=== PATIENT | male | born 1985 | race Caucasian/White ===

== ENCOUNTER 2021-06-22 09:51 | Emergency (ER) | payer OTHER, SELFPAY ==
[2021-06-22 09:59] VITALS: BP 106/69; PULSE 71; RESP 16; TEMP 35.9; O2SAT 96; BMI 34.0
[2021-06-22 10:25] LABS: Appearance Urine HAZY; Color Urine AMBER; Glucose Urine UA NEG (NEG); Leukocyte Esterase Urine NEG (NEG); Nitrite Urine NEG (NEG); PH 6.5 (5.0-8.0); UACC Culture Trigger NO; Urine Blood NEG (NEG); Urine Ketones 5 MG/DL (NEG); Urine Protein 1+ MG/DL (NEG-TRACE)
[2021-06-22 10:36] LABS: Amphetamine Screen Urine POSITIVE (Not Detect); Barbiturates, Urine POSITIVE (Not Detect); Benzodiazepines Screen Urine POSITIVE (Not Detect); Cannabinoid Screen Urine Not Detected (Not Detect); Cocaine Screen Urine Not Detected (Not Detect); Fentanyl, urine Not Detected (Not Detect); Opiate Screen Urine Not Detected (Not Detect); Phencyclidine Screen Urine Not Detected (Not Detect); RBC Urine 0-2 /HPF (0); WBC Urine 0 /HPF (0-4)
--- NOTE | 2021-06-22 11:14 | ED.MEDCLEAR ---
HPI - Medical Clearance General Chief complaint: Medical Clearance Stated complaint: med clearance Time Seen by Provider: 06/22/21 10:54 Source: patient Mode of arrival: ambulatory Limitations: no limitations History of Present Illness HPI Narrative: 36-year-old male presenting to the ED requesting for medical clearance to go to the program at [facility] today. He reports that he last used alcohol 3 weeks ago. Denies any recent alcohol usage or any drug usage at all. Denies any SI/HI/auditory visual sensations thoughts of self-injury. He reports he was recently hospitalized approximately 3 weeks ago for jaundice and is taking all his medication as prescribed and does not believe he needs any labs done. MD complaint: medical clearance requested Reason for Medical Clearance: other (Program at the [facility]) Alleged Intoxication: No Compliant with Home Medications: Yes Traumatic Symptoms: denies traumatic injury Associated Symptoms: denies other symptoms Treatments Prior to Arrival: none Review of Systems Review of Systems: Constitutional : No Fever, No Chills ENT/Mouth : No Ear Pain, No Nasal Congestion, No sore throat Eyes: No Eye Pain, No Swelling, No Redness Cardiovascular : No Chest Pain, No SOB Respiratory : No Cough, No Sputum, No Dyspnea Gastrointestinal : No ingestions, No Nausea, No Vomiting, No Diarrhea, No Hematochezia, No Melena Genitourinary : No Dysuria, No Urinary Frequency, No Hematuria Musculoskeletal : No Myalgias Skin : No Skin Lesions, No rash Neuro : No Weakness, No Numbness, No Paresthesias, No Dizziness, No Headache Psych : No Anxiety, No Depression, No SI/HI, No AVH, No thoughts of self injury Heme/Lymph: No Lymphadenopathy Endocrine : No Polyuria, No Polydipsia Yes all other systems are reviewed and are negative [facility] Past Medical History Attestation statement: The following information was validated with the patient. Medical History Arm fracture, left Social History Social History Advance Directives: No Advance Directives Information Provided: No Physical Exam Vital Signs: Vital Signs: Last Vital Signs Temp 96.7 F L 06/22/21 09:59 Pulse 71 06/22/21 09:59 Resp 16 06/22/21 09:59 BP 106/69 06/22/21 09:59 Pulse Ox 96 06/22/21 09:59 Body Mass Index 34.0 vital signs have been reviewed as normal and appeared to be correct. Blood pressure normal. Heart rate normal. Respiration rate normal. Temperature normal. Oxygen saturation normal. Appearance: Alert. Oriented X3. No acute distress. Head: Normal external exam. Normocephalic. Atraumatic. Eyes: PERRLA. EOMI. Patient noted to have jaundice to sclera/conjunctiva. He reports this is improved since he started his medication for jaundice. Eyelids normal. ENT: Pharynx normal. Uvula midline. Moist mucous membranes. Neck: Normal inspection. Neck supple. FROM. No adenopathy. No meningeal signs. CVS: Normal heart rate and rhythm. Respiratory: No respiratory distress. Painless inspiration. Back: Full range of motion noted. No rashes/lesion/induration/fluctuance or signs of infection noted. Skin: Skin warm and dry. Normal skin color. Normal skin turgor. No rashes/lesions/lacerations noted. Extremities: Extremities exhibit normal range of motion. Extremities nontender. Neuro: Oriented X 3. No motor deficit. No sensory deficit. Reflexes normal. Normal steady gait. No focal neuro deficits noted. Vascular: + radial pulses/+ 2 distal pedal pulses/+2 dorsalis pedis b/l. Normal cap refill. No cyanosis noted to upper extremity nails and lower extremity toes nails. Course Course Course Narrative: 36-year-old male presenting to the ED requesting for medical clearance to go to the program at [facility] today. He reports that he last used alcohol 3 weeks ago. Denies any recent alcohol usage or any drug usage at all. Denies any SI/HI/auditory visual sensations thoughts of self-injury. He reports he was recently hospitalized approximately 3 weeks ago for jaundice and is taking all his medication as prescribed and does not believe he needs any labs done. I noted that the patient was noted to have scleral icterus and he explained to me he is currently on medication due to he was recently hospitalized for prolonged time approximately 3 weeks ago for jaundice and it is improving he does not believe he needs any labs and is refusing/declining any other labs at this time. Drugs of abuse screen obtained and reveals that he is positive for barbiturates/ omitted things and benzos negative for all other drugs. UA is noted to have +1 protein and 5 ketones otherwise no evidence of UTI. Therefore at this time will give him a copy of his drugs of abuse screen and DC so he can go to the 8aweek program. Along with instructions to return if any new or worsening symptoms follow-up with primary care provider. Patient understands agrees with this plan. MDM - Medical Clearance Medical Records Attestation: I reviewed the patient's medical records. Lab Data Attestation: I reviewed the patient's lab results. Labs: Lab Results 06/22/21 06/22/21 Range/Units 10:17 10:17 Urine Color ALCON Urine Appearance HAZY Urine pH 6.5 (5.0-8.0) Ur Specific Bea[place]ont 1.020 (1.005-1.025) Urine Protein 1+ H (NEG-TRACE) MG/DL Urine Glucose (UA) NEG (NEG) MG/DL Urine Ketones 5 (NEG) MG/DL Urine Blood NEG (NEG) Urine Nitrite NEG (NEG) Ur Leukocyte Esterase NEG (NEG) Urine RBC 0-2 (0) /HPF Urine WBC 0 (0-4) /HPF Ur Squamous Epith Cells NONE /LPF Urine Bacteria NONE /LPF Urine Opiates Screen Not Detected (Not Detect) Urine Fentanyl Screen Not Detected (Not Detect) Ur Barbiturates Screen POSITIVE H (Not Detect) Ur Phencyclidine Scrn Not Detected (Not Detect) Ur Amphetamines Screen POSITIVE H (Not Detect) U Benzodiazepines Scrn POSITIVE H (Not Detect) Urine Cocaine Screen Not Detected (Not Detect) U Marijuana (THC) Screen Not Detected (Not Detect) Discharge Plan Discharge Clinical Impression: Encounter for medical clearance for patient hold Patient Disposition: Home, Self-Care Instructions: Medical Clearance for Substance Abuse Treatment (ED) Referrals: Killian Ortega MD [Primary Care Provider] - 2 days Print Language: Ghanaian
== END 2021-06-22 11:28 | disposition home or self-care (01) ==
PROVIDERS: Emergency Provider Emergency Medicine; PCP Internal Medicine
DX: Z02.2 Encounter for examination for admission to residential institution (principal)
CPT/HCPCS: 80307; 81001; 99284

== ENCOUNTER 2022-09-20 15:20 | Emergency (ER) | payer OTHER, SELFPAY ==
[2022-09-20 15:26] VITALS: BP 146/80; PULSE 80; O2SAT 94
[2022-09-20 15:55] VITALS: BP 120/68; PULSE 79; RESP 15; TEMP 36.6; O2SAT 98; BMI 31.5
[2022-09-20 16:12] VITALS: BP 120/66; PULSE 90; RESP 14; TEMP 37.2; O2SAT 91
--- NOTE | 2022-09-20 16:23 | ED_ITS ---
HPI - Alcohol General Chief Complaint: ETOH/Substance Use Stated Complaint: ETOH INTOX, WANTS DETOX Time Seen by Provider: 09/20/22 15:47 Source: patient and EMS Mode of arrival: EMS Limitations: other (Alcohol Intoxication) History of Present Illness HPI narrative: Patient comes to the emergency room via EMS from a detox facility. EMS reports that the patient was trying to do an intake, however the staff found the patient drinking alcohol that he was touring in several condoms. Also, patient was too intoxicated to do an intake in the colon ambulance to bring him to the emergency room for clearance. Patient denies being drunk, denies any other medical issues. Patient requesting help detox Related Data Allergies Allergy/AdvReac Type Severity Reaction Status Date / Time No Known Allergies Allergy Verified 09/20/22 16:18 Review of Systems Review of Systems: Constitutional : No Weight loss, No Fever, No Chills, No Night Sweats, No Fatigue, No Malaise ENT/Mouth : No Hearing loss, No Ear Pain, No Nasal Congestion, No Sinus Pain, No Hoarseness, No sore throat, No Rhinorrhea, No Swallowing Difficulty Eyes: No Eye Pain, No Swelling, No Redness, No Foreign Body, No Discharge, No Vision Changes Cardiovascular : No Chest Pain, No SOB, No Dyspnea on Exertion, No Orthopnea, No Edema, No Palpitations Respiratory : No Cough, No Sputum, No Wheezing, No Smoke Exposure, No Dyspnea Gastrointestinal : No Nausea, No Vomiting, No Diarrhea, No Constipation, No abdominal Pain, No Hematochezia, No Melena Genitourinary : no irregular bleeding, No Dysuria, No Urinary Frequency, No Hematuria, No Urinary Incontinence, No Urgency, No Flank Pain, No Urinary Flow Changes, No Hesitancy Musculoskeletal : No joint pain, No Myalgias, No Joint Swelling Skin : No Skin Lesions, No rash Neuro : No Weakness, No Numbness, No Paresthesias, No Loss of Consciousness, No Dizziness, No Headache Psych : No Anxiety/Panic, No Depression, No SI/HI/AH/VH, admits to alcoholism, requesting help/detox Heme/Lymph: No Bruising, No Bleeding,No Lymphadenopathy Endocrine : No Polyuria, No Polydipsia, No Temperature Intolerance PMFSH Past Medical History Medical History Alcohol abuse Arm fracture, left Substance abuse Social History Social History Advance Directives: No Advance Directives Information Provided: Yes Physical Exam ED Vital Signs: Vital Signs - 24 hr 09/20/22 15:55 09/20/22 16:12 Temperature 97.8 F 98.9 F Pulse Rate 79 90 Respiratory Rate 15 14 Blood Pressure 120/68 120/66 Pulse Oximetry 98 91 L Oxygen Delivery Method Room Air Room Air BMI result Body Mass Index 31.5 Const Other: Appearance: Alert. Oriented X3. No acute distress. Patient having coherent conversations but slurred Eyes: Pupils equal, round and reactive to light. ENT: Pharynx normal. Neck: Normal inspection. Neck supple. No lymph nodes noted. No crepitus CVS: Normal heart rate and rhythm. Pulses normal. Normal S1 and S2 Respiratory: No respiratory distress. Breath sounds normal. No Wheezing. No rales Abdomen: Soft and nontender. No rigidity. No distention. Skin: Skin warm and dry. Normal skin color. Normal skin turgor. Extremities: No lower extremity edema. No Lacerations. No Rash Neuro: Oriented X 3. No motor deficit. No sensory deficit. Moving all extremities.CN 2 through 12 grossly intact Psych: calm, cooperative, normal affect Course Course Course Narrative: Patient is seen by the head boys golf coach/care team. Before an intake, blood work has been requested. Patient agreeable. Patient's alcohol level 423, chemistry within normal limits, hematology pending, COVID negative Care team will evaluate the patient once he is sober. Physician elyssa loco started at 17:30 Medical Decision Making Medical Decision Making MDM Narrative: The patient was evaluated by the care team. Patient has abated available at 20:15 at [facility], the care team will provide a Lyft ride Differential Diagnosis Differential Diagnoses: The differential diagnosis associated with the presentation includes (Alcohol intoxication, alcohol abuse, substance abuse) Admission/Observation Consideration of admission/observation: Escalation of care including admission/observation considered (Patient is under observation at this time, waiting for the patient to become sober so that the care team can talk to him and helping with placement for detox) Lab Data [facility] Lab Attestation statement: I reviewed the patient's lab results. 09/20/22 17:21 01/09/23 16:45 Labs: Lab Results 09/20/22 09/20/22 09/20/22 Range/Units 16:31 16:31 16:45 WBC (4.8-10.8) X10*3/uL RBC (4.60-5.80) X10*6/uL Hgb (14.0-18.0) g/dl Hct (42.0-52.0) % MCV (80.0-98.0) fL MCH (27.0-33.0) pg MCHC (31.0-36.0) g/dl RDW (11.0-16.0) % Plt Count (160-400) X10*3/uL MPV (9.4-12.4) fL Immature Gran % (Auto) (0.0-0.4) % Neut % (Auto) (45-73) % Lymph % (Auto) (20-40) % Millard % (Auto) (2-11) % Eos % (Auto) (0-4) % Baso % (Auto) (0-2) % Lymph # (Auto) (1.2-4.9) X10*3/uL Millard # (Auto) (0.1-1.2) X10*3/uL Eos # (Auto) (0.0-0.4) X10*3/uL Baso # (Auto) (0.0-0.2) X10*3/uL Abs Immat Gran (auto) (0.00-0.03) X10*3/uL Absolute Neuts (auto) (2.0-8.3) x10*3/uL Absolute Nucleated RBC (0.0-0.012) X10*3/uL Nucleated RBC % (auto) (0.0-0.2) /100WBC Smear Tech's Comments Sodium 143 (135-145) mmol/L Potassium 4.7 (3.3-5.1) mmol/L Chloride 108 (96-108) mmol/L Carbon Dioxide 20 L (22-29) mmol/L Anion Gap 20 (12-20) BUN 10 (9-16) mg/dL Creatinine 0.73 (0.5-1.4) mg/dL Estim Creat Clear Calc 165.6 Estimated GFR > 60 Random Glucose 98 (60-115) mg/dL Calcium 8.6 (8.4-10.2) mg/dL Magnesium 1.9 (1.6-2.6) mg/dL Total Bilirubin 0.8 (0.0-1.0) mg/dL Direct Bilirubin 0.2 (0.0-0.5) mg/dL AST 63 H (5-37) U/L ALT 31 (0-40) U/L Alkaline Phosphatase 120 H (39-117) U/L Total Protein 8.1 H (6.5-8.0) g/dL Albumin 4.5 (3.5-5.0) g/dL Lipase 30 (8-78) U/L Urine Opiates Screen Not Detected (Not Detect) Urine Fentanyl Screen Not Detected (Not Detect) Ur Barbiturates Screen Not Detected (Not Detect) Ur Phencyclidine Scrn Not Detected (Not Detect) Ur Amphetamines Screen Not Detected (Not Detect) U Benzodiazepines Scrn Not Detected (Not Detect) Urine Cocaine Screen Not Detected (Not Detect) U Marijuana (THC) Screen Not Detected (Not Detect) Ethyl Alcohol 423 H* mg/dL COVID-19 (NII) Negative (Negative) COVID-19 Clin Com See Note 09/20/22 Range/Units 17:21 WBC 7.3 (4.8-10.8) X10*3/uL RBC 5.10 (4.60-5.80) X10*6/uL Hgb 16.2 (14.0-18.0) g/dl Hct 47.0 (42.0-52.0) % MCV 92.2 (80.0-98.0) fL MCH 31.8 (27.0-33.0) pg MCHC 34.5 (31.0-36.0) g/dl RDW 12.5 (11.0-16.0) % Plt Count 117 L (160-400) X10*3/uL MPV 11.8 (9.4-12.4) fL Immature Gran % (Auto) 0.1 (0.0-0.4) % Neut % (Auto) 32.7 L (45-73) % Lymph % (Auto) 60.8 H (20-40) % Millard % (Auto) 4.0 (2-11) % Eos % (Auto) 1.6 (0-4) % Baso % (Auto) 0.8 (0-2) % Lymph # (Auto) 4.4 (1.2-4.9) X10*3/uL Millard # (Auto) 0.3 (0.1-1.2) X10*3/uL Eos # (Auto) 0.1 (0.0-0.4) X10*3/uL Baso # (Auto) 0.1 (0.0-0.2) X10*3/uL Abs Immat Gran (auto) 0.01 (0.00-0.03) X10*3/uL Absolute Neuts (auto) 2.4 (2.0-8.3) x10*3/uL Absolute Nucleated RBC 0.000 (0.0-0.012) X10*3/uL Nucleated RBC % (auto) 0.0 (0.0-0.2) /100WBC Smear Tech's Comments VERIFIED Sodium (135-145) mmol/L Potassium (3.3-5.1) mmol/L Chloride (96-108) mmol/L Carbon Dioxide (22-29) mmol/L Anion Gap (12-20) BUN (9-16) mg/dL Creatinine (0.5-1.4) mg/dL Estim Creat Clear Calc Estimated GFR Random Glucose (60-115) mg/dL Calcium (8.4-10.2) mg/dL Magnesium (1.6-2.6) mg/dL Total Bilirubin (0.0-1.0) mg/dL Direct Bilirubin (0.0-0.5) mg/dL AST (5-37) U/L ALT (0-40) U/L Alkaline Phosphatase (39-117) U/L Total Protein (6.5-8.0) g/dL Albumin (3.5-5.0) g/dL Lipase (8-78) U/L Urine Opiates Screen (Not Detect) Urine Fentanyl Screen (Not Detect) Ur Barbiturates Screen (Not Detect) Ur Phencyclidine Scrn (Not Detect) Ur Amphetamines Screen (Not Detect) U Benzodiazepines Scrn (Not Detect) Urine Cocaine Screen (Not Detect) U Marijuana (THC) Screen (Not Detect) Ethyl Alcohol mg/dL COVID-19 (NII) (Negative) COVID-19 Clin Com Discharge Plan Discharge Clinical Impression: Alcohol abuse Patient Disposition: Home, Self-Care Instructions: Abuse of Alcohol (ED) Additional Instructions: Please follow-up with your primary care physician tomorrow. If you have any worsening or new symptoms, please return to the emergency room or call 911 Interventions: Bowman-Suicide Risk Severity Scale Last Done: 09/20/22 15:57
--- NOTE | 2022-09-20 16:24 | MHC.RECOVRN ---
Met with pt in 22[facility] to discuss substance use and desire for treatment. Pt reports drinking 1/2 gallon vodka today, has been drinking up to 5 gallons x 5 days. Denies other substances. Pt is currently taking Suboxone, per pt report 20 mg daily x 7/8 years. Pt interested in ATS, specifically [facility]. Pt completing intake.
[2022-09-20 16:47] LABS: Amphetamine Screen Urine Not Detected (Not Detect); Barbiturates, Urine Not Detected (Not Detect); Benzodiazepines Screen Urine Not Detected (Not Detect); Cannabinoid Screen Urine Not Detected (Not Detect); Cocaine Screen Urine Not Detected (Not Detect); Fentanyl, urine Not Detected (Not Detect); Opiate Screen Urine Not Detected (Not Detect); Phencyclidine Screen Urine Not Detected (Not Detect)
[2022-09-20 17:08] LABS: Alanine Aminotransferase 31 U/L (0-40); Albumin Level 4.5 g/dL (3.5-5.0); Alkaline Phosphatase 120 U/L (39-117); Anion Gap 20 (12-20); Aspartate Amino Transferase 63 U/L (5-37); Bilirubin Direct 0.2 mg/dL (0.0-0.5); Bilirubin Total 0.8 mg/dL (0.0-1.0); Blood Urea Nitrogen 10 mg/dL (9-16); Calcium 8.6 mg/dL (8.4-10.2); Carbon Dioxide 20 mmol/L (22-29); Chloride 108 mmol/L (96-108); Creatinine Clr Calc Pharmacy 165.6; Estimated Glomerular Filt Rate > 60; Ethanol 423 mg/dL; Glucose Random 98 mg/dL (60-115); Lipase 30 U/L (8-78); Magnesium 1.9 mg/dL (1.6-2.6); Potassium 4.7 mmol/L (3.3-5.1); Sodium 143 mmol/L (135-145); Total Protein 8.1 g/dL (6.5-8.0)
[2022-09-20 17:12] LABS: IDNOW Serial# 55D5AD1C
[2022-09-20 17:13] LABS: COVID-19 Test Negative (Negative)
--- NOTE | 2022-09-20 17:26 | PC.NURSE ---
Pt will be going to [facility] when bed is available and bloodwork is complete
[2022-09-20 17:28] LABS: Basophils Absolute Auto 0.1 X10*3/uL (0.0-0.2); Basophils Percent Auto 0.8 % (0-2); Eosinophils Absolute Auto 0.1 X10*3/uL (0.0-0.4); Eosinophils Percent Auto 1.6 % (0-4); Hemoglobin 16.2 g/dl (14.0-18.0); Imm Gran Abs Auto 0.01 X10*3/uL (0.00-0.03); Imm Gran Pct Auto 0.1 % (0.0-0.4); Lymphocytes Absolute Auto 4.4 X10*3/uL (1.2-4.9); Lymphocytes Percent Auto 60.8 % (20-40); MANUAL DIFF FLAG SCAN; Mean Corpuscular HGB Conc 34.5 g/dl (31.0-36.0); Mean Corpuscular Hemoglobin 31.8 pg (27.0-33.0); Mean Corpuscular Volume 92.2 fL (80.0-98.0); Mean Platelet Volume 11.8 fL (9.4-12.4); Monocytes Absolute Auto 0.3 X10*3/uL (0.1-1.2); Neutrophils Absolute Auto 2.4 x10*3/uL (2.0-8.3); Neutrophils Percent Auto 32.7 % (45-73); Platelet Count 117 X10*3/uL (160-400); Red Cell Distribution Width 12.5 % (11.0-16.0); SCAN SMEAR FLAG 1; White Blood Count 7.3 X10*3/uL (4.8-10.8)
[2022-09-20 17:43] LABS: SLIDE REVIEW VERIFIED
--- NOTE | 2022-09-20 18:39 | MHC.CARE ---
Accepted to [facility], intake at 8:15pm, will be transported via lyft.
--- NOTE | 2022-09-20 19:26 | MHC.RECOVSUP ---
? Reason for consult Recovery Support o Current location: ED22[facility] o Identified substance use concern: Alcohol - Seeking ATS (detox) - Support ? Intervention: o ATS bed search started/completed/in process o Community resources provided o Harm reduction discussion ? Plan: o Patient to follow up with H after discharge ? Additional information: Met with Patient and he express that he wanted to go detox still Called [facility] and his paper work was fax by care team and patient on his way to detox
== END 2022-09-20 19:35 | disposition home or self-care (01) ==
PROVIDERS: Emergency Provider Emergency Medicine; PCP Internal Medicine
DX: F10.10 Alcohol abuse, uncomplicated (principal); Y90.8 Blood alcohol level of 240 mg/100 ml or more; Z20.822 Contact with and (suspected) exposure to COVID-19; F11.20 Opioid dependence, uncomplicated
CPT/HCPCS: 80048; 80076; 80307; 82077; 83690; 83735; 85025; 87635; 99284